=== PATIENT | male | born 2000 | race Caucasian/White ===

== ENCOUNTER 2019-10-08 20:37 | Emergency (ER) | payer OTHER ==
--- NOTE | 2019-10-08 21:28 | EDM.PDOC ---
ED HPI GENERAL MEDICAL PROBLEM - General Chief Complaint: ENT Problem Stated Complaint: FLU SYMTOMS Time Seen by Provider: 10/08/19 21:23 Source of Information: Reports: Patient History Limitations: Reports: No Limitations - History of Present Illness INITIAL COMMENTS - FREE TEXT/NARRATIVE: HISTORY AND PHYSICAL: History of present illness: Patient is a 19-year-old male presents to the ED with complaint of sore throat, congestion, and cough x 3 days. He reports subjective fever and chills, body aches. He denies chest pain, shortness of breath, nausea, vomiting, abdominal pain, diarrhea, difficulty breathing or swallowing. He denies significant past medical history. Review of systems: As per history of present illness and below otherwise all systems reviewed and negative. Past medical history: As per history of present illness and as reviewed below otherwise noncontributory. Surgical history: As per history of present illness and as reviewed below otherwise noncontributory. Social history: No reported history of drug or alcohol abuse. Family history: As per history of present illness and as reviewed below otherwise noncontributory. Physical exam: General: Patient sitting comfortably in no acute distress and nontoxic appearing HEENT: Atraumatic, normocephalic, pupils reactive, negative for conjunctival pallor or scleral icterus, mucous membranes moist, throat clear, neck supple, nontender, trachea midline. No meningeal signs. Lungs: Clear to auscultation, breath sounds equal bilaterally, chest nontender. Heart: S1S2, regular, negative for clicks, rubs, or overt murmur. Abdomen: Soft, nondistended, nontender. Negative for masses or hepatosplenomegaly. Negative for costovertebral tenderness. No rigidity, rebound , guarding. Pelvis: Stable nontender. Genitourinary: Deferred. Rectal: Deferred. Extremities: Atraumatic, negative for cords or calf pain. Neurovascular unremarkable. Neuro: Awake, alert, oriented. Cranial nerves II through XII unremarkable. Cerebellum unremarkable. Motor and sensory unremarkable throughout. Exam nonfocal. Notes: Diagnostics: rapid strep, influenza Therapeutics: none Prescriptions: none Impression: Viral URI Plan: Alternate tylenol and motrin as needed Follow u p with primary care provider Return to ED as needed as discussed Definitive disposition and diagnosis as appropriate pending reevaluation and review of above. Throat Pain Score (Numeric/FACES): 5 - Related Data Allergies Allergy/AdvReac Type Severity Reaction Status Date / Time codeine Allergy Abdominal Verified 10/08/19 21:25 Pain tree nut Allergy Vomiting Verified 10/08/19 21:25 Home Meds: Home Meds . [No Known Home Meds] 10/08/19 [History] ED ROS ENT - Review of Systems Review Of Systems: Comprehensive ROS is negative, except as noted in HPI. ED EXAM, ENT - Physical Exam Exam: See Below (see dictation) Course - Vital Signs Last Recorded V/S: Last Vital Signs Temp 97.5 F 10/08/19 21:14 Pulse 82 10/08/19 21:14 Resp 17 10/08/19 21:14 BP 148/70 H 10/08/19 21:14 Pulse Ox 99 10/08/19 21:14 - Orders/Labs/Meds Orders: Active Orders 24 hr Category Date Time Status CULTURE STREP A CONFIRMATION [RM] Stat Lab 10/08/19 21:24 Results STREP SCRN A RAPID W CULT CONF [RM] Stat Lab 10/08/19 21:24 Results Departure - Departure Time of Disposition: 21:53 Disposition: Home, Self-Care 01 Condition: Good Clinical Impression: Viral URI - Discharge Information Referrals: PCP,None [Primary Care Provider] - Forms: ED Department Discharge Additional Instructions: The following information is given to patients seen in the emergency department who are being discharged to home. This information is to outline your options for follow-up care. We provide all patients seen in our emergency department with a follow-up referral. The need for follow-up, as well as the timing and circumstances, are variable depending upon the specifics of your emergency department visit. If you don't have a primary care physician on staff, we will provide you with a referral. We always advise you to contact your personal physician following an emergency department visit to inform them of the circumstance of the visit and for follow-up with them and/or the need for any referrals to a consulting specialist. The emergency department will also refer you to a specialist when appropriate. This referral assures that you have the opportunity for follow-up care with a specialist. All of these measure are taken in an effort to provide you with optimal care, which includes your follow-up. Under all circumstances we always encourage you to contact your private physician who remains a resource for coordinating your care. When calling for follow-up care, please make the office aware that this follow-up is from your recent emergency room visit. If for any reason you are refused follow-up, please contact the [facility] Emergency Department at and asked to speak to the emergency department charge nurse. [facility] [address] [place] [address] [facility] [address] [place] [id number] Alternate tylenol and motrin as needed Follow u p with primary care provider Return to ED as needed as discussed Sepsis Event Note - Evaluation Sepsis Screening Result: No Definite Risk - Focused Exam Vital Signs: Vital Signs Temp Pulse Resp BP Pulse Ox 10/08/19 21:14 97.5 F 82 17 148/70 H 99 Date Exam was Performed: 10/08/19 Time Exam was Performed: 21:53 - My Orders Last 24 Hours: My Active Orders 10/08/19 21:24 CULTURE STREP A CONFIRMATION [RM] Stat STREP SCRN A RAPID W CULT CONF [RM] Stat - Assessment/Plan Last 24 Hours: My Active Orders 10/08/19 21:24 CULTURE STREP A CONFIRMATION [RM] Stat STREP SCRN A RAPID W CULT CONF [RM] Stat
== END 2019-10-08 22:00 | disposition home or self-care (01) ==
LOC: MW.ED 20:37
DX: J06.9 Acute upper respiratory infection, unspecified (principal); Z91.018 Allergy to other foods; Z88.5 Allergy status to narcotic agent
CPT/HCPCS: 87081; 87804; 87880-QW; 99283

== ENCOUNTER 2019-11-10 19:45 | Emergency (ER) | payer OTHER ==
--- NOTE | 2019-11-10 20:34 | EDM.PDOC ---
ED HPI GENERAL MEDICAL PROBLEM - General Chief Complaint: ENT Problem Stated Complaint: HOLE IN SEPTUM Time Seen by Provider: 11/10/19 19:49 Source of Information: Reports: Patient History Limitations: Reports: No Limitations - History of Present Illness INITIAL COMMENTS - FREE TEXT/NARRATIVE: HISTORY OF PRESENT ILLNESS: Patient is a 19 year old male who states he has had a septal perforation since age 16. He saw an ENT specialist initially for this but has not followed up since. States it has been gradually enlarging over the last 6 months and has some stinging pain to the area. He wants to make sure there is no bone infection and wants it fixed. States he stopped using cocaine 1 month ago and this was the initial etiology of the perforation. Was boxing 2 days ago with friends and had epistaxis which since resolved but does have crusting. No difficulty breathing. No pain or difficulty with eye movement. No facial redness or swelling. No fever. REVIEW OF SYSTEMS: Other than the symptoms associated with the present events, the following is reported with regard to recent health: General: (-) fever. HENT: (-) congestion. Respiratory: (-) cough. Cardiovascular: (-) chest pain. GI: (-) abdominal pain. : (-) urinary complaints. Musculoskeletal: (-) other aches or pains. Endocrine: (-) generalized weakness. Neurological: (-) localized weakness. Skin: (-) rash PAST MEDICAL HISTORY: reviewed as per nursing notes SOCIAL HISTORY: reviewed as per nursing notes, MEDICATIONS: Per nurse's note ALLERGIES: Per nurse's note, reviewed by me PHYSICAL EXAMINATION: GENERALIZED APPEARANCE: well developed, well nourished in no distress VITAL SIGNS: Per nurse's note, reviewed by me SKIN: Warm, dry; (-) cyanosis; (-) rash. HEAD: (-) scalp swelling, (-) tenderness. EYES: (-) conjunctival pallor, (-) scleral icterus. EOMI ENMT: (-) stridor; mucous membranes moist. no facial swelling. septal perforation with some crusting. no hematoma. no abscess. nasal passages widely patent. no epistaxis NECK: (-) tenderness, (-) stiffness, CHEST AND RESPIRATORY: (-) rales, (-) rhonchi, (-) wheezes; breath sounds equal bilaterally. HEART AND CARDIOVASCULAR: (-) irregularity; (-) murmur, (-) gallop. ABDOMEN AND GI: nondistended EXTREMITIES: (-) deformity, (-) edema. NEURO AND PSYCH: Alert. Cranial nerves grossly intact; strength symmetric. gait steady DIAGNOSTICS: xray: as read by radiologist, reviewed by myself EMERGENCY DEPARTMENT COURSE AND TREATMENT: Patient's condition remained stable during Emergency Department evaluation. No gross evidence of infection or active bleeding. This is a chronic problem and patient will need follow up with a specialist. No obvious medical emergency at this time. To f/u with pcp and ENT in 1-2 days. Return immediately with any new or worsening symptoms. PLAN AND FOLLOW-UP: Patient received written and verbal instructions regarding this condition. Return to ED immediately with any new or worsening symptoms. Follow up to be arranged by patient with pcp and ENT in 1-2 days for further evaluation. Given discharge precautions. patient expressed verbal understanding. nasal Pain Score (Numeric/FACES): 4 - Related Data Allergies Allergy/AdvReac Type Severity Reaction Status Date / Time codeine Allergy Abdominal Verified 11/10/19 19:56 Pain tree nut Allergy Vomiting Verified 11/10/19 19:56 Home Meds: Home Meds Albuterol Sulfate [Albuterol Sulfate Hfa] 2 puff INH Q4HR PRN 11/10/19 [History] Past Medical History HEENT History: Reports: Other (See Below) Other HEENT History: deviated septum, epistaxis Respiratory History: Reports: Asthma - Past Surgical History HEENT Surgical History: Reports: None Respiratory Surgical History: Reports: None Social & Family History - Family History Family Medical History: Noncontributory - Tobacco Use Smoking Status *Q: Current Every Day Smoker Years of Tobacco use: 5 Packs/Tins Daily: 0.5 - Caffeine Use Caffeine Use: Reports: Energy Drinks, Soda - Recreational Drug Use Recreational Drug Use: Yes Recreational Drug Type: Reports: Cocaine Recreational Drug Use Frequency: Socially Recreational Drug Last Use: "a month ago" ED ROS ENT - Review of Systems Review Of Systems: See Below (see dictation) ED EXAM, ENT - Physical Exam Exam: See Below (see dictation) Course - Vital Signs Last Recorded V/S: Last Vital Signs Temp 97.9 F 11/10/19 21:06 Pulse 70 11/10/19 21:06 Resp 14 04/14/20 21:06 BP 138/69 11/10/19 21:06 Pulse Ox 100 11/10/19 21:06 Departure - Departure Time of Disposition: 20:55 Disposition: Home, Self-Care 01 Condition: Good Clinical Impression: Nasal septal perforation - Discharge Information *PRESCRIPTION DRUG MONITORING PROGRAM REVIEWED*: Not Applicable *COPY OF PRESCRIPTION DRUG MONITORING REPORT IN PATIENT [place]: Not Applicable Instructions: Septoplasty Referrals: Abimbola Herrera DO [Primary Care Provider] - 1 Day Jair Morgan MD [Ordering Only Provider] - 1 Day Forms: ED Department Discharge Additional Instructions: The following information is given to patients seen in the emergency department who are being discharged to home. This information is to outline your options for follow-up care. We provide all patients seen in our emergency department with a follow-up referral. The need for follow-up, as well as the timing and circumstances, are variable depending upon the specifics of your emergency department visit. If you don't have a primary care physician on staff, we will provide you with a referral. We always advise you to contact your personal physician following an emergency department visit to inform them of the circumstance of the visit and for follow-up with them and/or the need for any referrals to a consulting specialist. The emergency department will also refer you to a specialist when appropriate. This referral assures that you have the opportunity for follow-up care with a specialist. All of these measure are taken in an effort to provide you with optimal care, which includes your follow-up. Under all circumstances we always encourage you to contact your private physician who remains a resource for coordinating your care. When calling for follow-up care, please make the office aware that this follow-up is from your recent emergency room visit. If for any reason you are refused follow-up, please contact the [facility] Emergency Department at and asked to speak to the emergency department charge nurse. Sepsis Event Note - Evaluation Sepsis Screening Result: No Definite Risk - Focused Exam Vital Signs: Vital Signs Temp Pulse Resp BP Pulse Ox 11/10/19 21:06 97.9 F 70 14 138/69 100 11/10/19 19:49 98.2 F 89 16 137/86 98 Date Exam was Performed: 11/10/19 Time Exam was Performed: 21:14
--- NOTE | 2019-11-10 20:53 | CR ---
Nasal bone: 3 views of the nasal bones were obtained. Comparison: No previous study. Visualized paranasal sinuses are clear. Mild nasal septal deviation is seen which is likely pre-existing. No nasal bone fracture is appreciated. Impression: 1. Nasal septal deviation which likely is pre-existing. 2. Nothing acute is appreciated. Diagnostic code #2 Study was dictated in MDT
== END 2019-11-10 21:06 | disposition home or self-care (01) ==
LOC: MW.ED 19:45
DX: J34.89 Other specified disorders of nose and nasal sinuses (principal); J45.909 Unspecified asthma, uncomplicated; F17.210 Nicotine dependence, cigarettes, uncomplicated
CPT/HCPCS: 70160; 70160-26; 99282; 99283-25